=== PATIENT | male | born 1955 | race Caucasian/White ===

== ENCOUNTER → 2019-07-16 | Outpatient (CLI) | payer OTHER ==
--- NOTE | 2019-07-16 15:11 | Diagnostic Imaging Report ---
Modified barium swallow exam with speech pathology service, 07/16/2019 CLINICAL HISTORY: Seizure Fluoro Time: 1.8 min. Estimated dose: 10.0 mGy GEO IMPRESSION: Please see the speech pathology service report for details. Barium contrast of multiple consistencies is given to the patient to swallow. Fluoroscopic observation is performed during swallowing. Trace laryngeal aspiration was noted with thin liquids. Signed by: Mike Pineda MD on 07/16/2019 3:09 PM
== END ==
LOC: DX 09:39
PROVIDERS: ATTEND Family Medicine
DX: R13.12 Dysphagia, oropharyngeal phase (principal)
CPT/HCPCS: 74230